=== PATIENT | male | born 1945 | race Caucasian/White ===

== ENCOUNTER 2019-12-02 21:47 | Inpatient (IN) | payer MEDICARE, OTHER ==
[~2019-12-02] VITALS: Ht 167.6 cm; Wt 88.0 kg
[2019-12-02 22:38] LABS: BASOPHILS % (AUTO) 0.8 % (0.0-2.0); EOSINOPHILS # (AUTO) 0.2 K/uL (0.0-0.7); HEMATOCRIT 43.5 % (36.7-47.1); HEMOGLOBIN 15.1 g/dL (12.5-16.3); LYMPHOCYTES # (AUTO) 1.5 K/uL (20.0-40.0); LYMPHOCYTES % (AUTO) 36.8 % (20.5-51.5); MEAN CORPUSCULAR HEMOGLOBIN 33.8 uug (23.8-33.4); MEAN CORPUSCULAR HGB CONC 35 g/dL (32.5-36.3); MEAN CORPUSCULAR VOLUME 97.6 fL (73.0-96.2); MONOCYTES # (AUTO) 0.4 K/uL (2.0-10.0); MONOCYTES % (AUTO) 10.6 % (0.0-11.0); NEUTROPHILS % (AUTO) 47.8 % (38.5-71.5); PLATELET COUNT (AUTO) 81 K/uL (152-348); RED BLOOD CELL COUNT(AUTO) 4.45 MIL/uL (4.06-5.63); WHITE BLOOD COUNT (AUTO) 4.2 K/uL (3.6-10.2)
[2019-12-02 22:45] LABS: CREATININE 0.9 mg/dL (0.6-1.3)
[2019-12-02] MEDS ORDERED: ALBUTEROL SULFATE 2.5 MG/3 ML NEBU NEB ONE (23:00)
[2019-12-02] MEDS ORDERED: IPRATROPIUM BROMIDE 0.5 MG/2.5 ML NEBU NEB ONE (23:00)
[2019-12-02] MEDS ORDERED: MAGNESIUM HYDROXIDE 30 ML LIQUID UDC PO PRN (23:45)
[2019-12-02] MEDS ORDERED: MAG HYDROX/AL HYDROX/SIMETH 30 ML LIQUID UDC PO PRN (23:45)
[2019-12-03 01:36] VITALS: BP 161/71
[2019-12-03 01:59] LABS: LYMPHOCYTES % (MANUAL) 39 % (20-40); MONOCYTES % (MANUAL) 6 % (2-10); NEUTROPHILS % (MANUAL) 55 % (42-75)
[2019-12-03 07:30] VITALS: BP 119/71
[2019-12-03] MEDS: NICOTINE 14 MG/24HR PATCH TD SCH (09:30)
[2019-12-03] MEDS ORDERED: ASPIRIN EC 81 MG TABLET.DR PO SCH (11:30)
[2019-12-03] MEDS ORDERED: FLUTICASONE/SALMETEROL 250/50 INHALER IH SCH (11:30)
[2019-12-03] MEDS ORDERED: NICOTINE 21 MG/24HR PATCH TD SCH (11:30)
[2019-12-03] MEDS: FUROSEMIDE 20 MG TABLET PO SCH (12:56)
[2019-12-03] MEDS: FAMOTIDINE 20 MG TABLET PO SCH (12:56)
[2019-12-03] MEDS: TAMSULOSIN HCL 0.4 MG CAP.SR.24H PO SCH (12:57)
[2019-12-03] MEDS: FLUTICASONE/VILANTEROL 1 EACH BLST.W.DEV INH SCH (15:34)
[2019-12-03 16:00] VITALS: BP 155/70
[2019-12-03 20:00] VITALS: BP 138/81
[2019-12-03] MEDS ORDERED: QUETIAPINE FUMARATE 25 MG TABLET PO SCH (21:00)
[2019-12-04 07:30] VITALS: BP 129/67
[2019-12-04] MEDS: FLUTICASONE/VILANTEROL 1 EACH BLST.W.DEV INH SCH (08:28)
[2019-12-04] MEDS: SERTRALINE HCL 50 MG TABLET PO SCH (08:29)
[2019-12-04] MEDS: TAMSULOSIN HCL 0.4 MG CAP.SR.24H PO SCH (08:29)
[2019-12-04] MEDS: FAMOTIDINE 20 MG TABLET PO SCH (08:29)
[2019-12-04] MEDS: FUROSEMIDE 20 MG TABLET PO SCH (08:29)
[2019-12-04] MEDS: NICOTINE 14 MG/24HR PATCH TD SCH (08:32)
[2019-12-04 16:38] VITALS: BP 125/69
[2019-12-04 20:50] VITALS: BP 125/88
[2019-12-04] MEDS ORDERED: QUETIAPINE FUMARATE 25 MG TABLET PO SCH (21:00)
[2019-12-05 07:30] VITALS: BP 135/67
[2019-12-05] MEDS: TAMSULOSIN HCL 0.4 MG CAP.SR.24H PO SCH (08:38)
[2019-12-05] MEDS: SERTRALINE HCL 50 MG TABLET PO SCH (08:38)
[2019-12-05] MEDS: FUROSEMIDE 20 MG TABLET PO SCH (08:38)
[2019-12-05] MEDS: FAMOTIDINE 20 MG TABLET PO SCH (08:38)
[2019-12-05] MEDS: NICOTINE 14 MG/24HR PATCH TD SCH (08:39)
[2019-12-05] MEDS: FLUTICASONE/VILANTEROL 1 EACH BLST.W.DEV INH SCH (09:25)
[2019-12-05 15:34] VITALS: BP 159/77
[2019-12-05 20:23] VITALS: BP 135/74
[2019-12-05] MEDS: QUETIAPINE FUMARATE 25 MG TABLET PO SCH (20:32)
[2019-12-06 07:30] VITALS: BP 139/73
[2019-12-06] MEDS: TAMSULOSIN HCL 0.4 MG CAP.SR.24H PO SCH (09:32)
[2019-12-06] MEDS: FAMOTIDINE 20 MG TABLET PO SCH (09:33)
[2019-12-06] MEDS: FUROSEMIDE 20 MG TABLET PO SCH (09:33)
[2019-12-06] MEDS: NICOTINE 14 MG/24HR PATCH TD SCH (09:33)
[2019-12-06] MEDS: SERTRALINE HCL 50 MG TABLET PO SCH (09:33)
[2019-12-06] MEDS: FLUTICASONE/VILANTEROL 1 EACH BLST.W.DEV INH SCH (09:38)
[2019-12-06 15:17] VITALS: BP 131/62
[2019-12-06] MEDS: QUETIAPINE FUMARATE 25 MG TABLET PO SCH (20:24)
[2019-12-06 20:26] VITALS: BP 126/65
[2019-12-06] MEDS: ACETAMINOPHEN 325 MG TABLET PO PRN (20:45)
[2019-12-07 07:30] VITALS: BP 115/61
[2019-12-07] MEDS: TAMSULOSIN HCL 0.4 MG CAP.SR.24H PO SCH (08:46)
[2019-12-07] MEDS: SERTRALINE HCL 50 MG TABLET PO SCH (08:46)
[2019-12-07] MEDS: FUROSEMIDE 20 MG TABLET PO SCH (08:46)
[2019-12-07] MEDS: FAMOTIDINE 20 MG TABLET PO SCH (08:46)
[2019-12-07] MEDS: NICOTINE 14 MG/24HR PATCH TD SCH (08:46)
[2019-12-07] MEDS: FLUTICASONE/VILANTEROL 1 EACH BLST.W.DEV INH SCH (08:48)
[2019-12-07 15:53] VITALS: BP 139/72
[2019-12-07] MEDS: QUETIAPINE FUMARATE 25 MG TABLET PO SCH (20:12)
[2019-12-07 21:05] VITALS: BP 119/63
[2019-12-08 07:30] VITALS: BP 137/68
[2019-12-08] MEDS: LORAZEPAM 0.5 MG TABLET PO PRN (08:33)
[2019-12-08] MEDS: NICOTINE 14 MG/24HR PATCH TD SCH (08:40)
[2019-12-08] MEDS: SERTRALINE HCL 50 MG TABLET PO SCH (08:41)
[2019-12-08] MEDS: FUROSEMIDE 20 MG TABLET PO SCH (08:41)
[2019-12-08] MEDS: FAMOTIDINE 20 MG TABLET PO SCH (08:41)
[2019-12-08] MEDS: TAMSULOSIN HCL 0.4 MG CAP.SR.24H PO SCH (08:41)
[2019-12-08] MEDS: FLUTICASONE/VILANTEROL 1 EACH BLST.W.DEV INH SCH (09:02)
[2019-12-08 16:00] VITALS: BP 118/65
[2019-12-08 20:00] VITALS: BP 126/62
[2019-12-08] MEDS ORDERED: QUETIAPINE FUMARATE 25 MG TABLET PO SCH (21:00)
[2019-12-08] MEDS: QUETIAPINE FUMARATE 100 MG TABLET PO SCH (21:57)
[2019-12-09 07:30] VITALS: BP 127/70
[2019-12-09] MEDS: SERTRALINE HCL 50 MG TABLET PO SCH (08:39)
[2019-12-09] MEDS: FUROSEMIDE 20 MG TABLET PO SCH (08:40)
[2019-12-09] MEDS: FAMOTIDINE 20 MG TABLET PO SCH (08:40)
[2019-12-09] MEDS: FLUTICASONE/VILANTEROL 1 EACH BLST.W.DEV INH SCH (08:40)
[2019-12-09] MEDS: NICOTINE 14 MG/24HR PATCH TD SCH (08:40)
[2019-12-09] MEDS: LORAZEPAM 0.5 MG TABLET PO PRN (08:40)
[2019-12-09] MEDS: TAMSULOSIN HCL 0.4 MG CAP.SR.24H PO SCH (08:40)
[2019-12-09 17:00] VITALS: BP 138/69
[2019-12-09 20:00] VITALS: BP 139/65
[2019-12-09] MEDS: QUETIAPINE FUMARATE 100 MG TABLET PO SCH (20:43)
[2019-12-10] MEDS: ACETAMINOPHEN 325 MG TABLET PO PRN (04:30)
[2019-12-10 07:30] VITALS: BP 142/73
[2019-12-10] MEDS: FAMOTIDINE 20 MG TABLET PO SCH (08:52)
[2019-12-10] MEDS: FUROSEMIDE 20 MG TABLET PO SCH (08:52)
[2019-12-10] MEDS: TAMSULOSIN HCL 0.4 MG CAP.SR.24H PO SCH (08:52)
[2019-12-10] MEDS: SERTRALINE HCL 50 MG TABLET PO SCH (08:52)
[2019-12-10] MEDS: NICOTINE 14 MG/24HR PATCH TD SCH (08:52)
[2019-12-10] MEDS: FLUTICASONE/VILANTEROL 1 EACH BLST.W.DEV INH SCH (08:55)
[2019-12-10 16:10] VITALS: BP 132/72
[2019-12-10 20:32] VITALS: BP 144/63
[2019-12-10] MEDS: QUETIAPINE FUMARATE 100 MG TABLET PO SCH (20:39)
[2019-12-11 07:30] VITALS: BP 136/64
[2019-12-11] MEDS: FUROSEMIDE 20 MG TABLET PO SCH (09:03)
[2019-12-11] MEDS: FAMOTIDINE 20 MG TABLET PO SCH (09:03)
[2019-12-11] MEDS: SERTRALINE HCL 50 MG TABLET PO SCH (09:03)
[2019-12-11] MEDS: NICOTINE 14 MG/24HR PATCH TD SCH (09:03)
[2019-12-11] MEDS: TAMSULOSIN HCL 0.4 MG CAP.SR.24H PO SCH (09:03)
[2019-12-11] MEDS: FLUTICASONE/VILANTEROL 1 EACH BLST.W.DEV INH SCH (09:14)
[2019-12-11 16:00] VITALS: BP 108/64
[2019-12-11 20:15] VITALS: BP 126/70
[2019-12-11] MEDS: QUETIAPINE FUMARATE 100 MG TABLET PO SCH (21:12)
[2019-12-12 07:30] VITALS: BP 131/77
[2019-12-12] MEDS: TAMSULOSIN HCL 0.4 MG CAP.SR.24H PO SCH (08:32)
[2019-12-12] MEDS: FUROSEMIDE 20 MG TABLET PO SCH (08:33)
[2019-12-12] MEDS: NICOTINE 14 MG/24HR PATCH TD SCH (08:33)
[2019-12-12] MEDS: SERTRALINE HCL 50 MG TABLET PO SCH (08:33)
[2019-12-12] MEDS: FAMOTIDINE 20 MG TABLET PO SCH (08:33)
[2019-12-12] MEDS: FLUTICASONE/VILANTEROL 1 EACH BLST.W.DEV INH SCH (08:33)
[2019-12-12 16:00] VITALS: BP 133/61
[2019-12-12] MEDS: QUETIAPINE FUMARATE 100 MG TABLET PO SCH (20:14)
[2019-12-12 20:34] VITALS: BP 118/61
[2019-12-13 07:30] VITALS: BP 116/61
[2019-12-13] MEDS: FAMOTIDINE 20 MG TABLET PO SCH (08:47)
[2019-12-13] MEDS: NICOTINE 14 MG/24HR PATCH TD SCH (08:47)
[2019-12-13] MEDS: TAMSULOSIN HCL 0.4 MG CAP.SR.24H PO SCH (08:47)
[2019-12-13] MEDS: FUROSEMIDE 20 MG TABLET PO SCH (08:47)
[2019-12-13] MEDS: SERTRALINE HCL 50 MG TABLET PO SCH (08:48)
[2019-12-13] MEDS: FLUTICASONE/VILANTEROL 1 EACH BLST.W.DEV INH SCH (08:49)
[2019-12-13 16:38] VITALS: BP 117/61
[2019-12-13 20:19] VITALS: BP 130/60
[2019-12-13] MEDS: QUETIAPINE FUMARATE 100 MG TABLET PO SCH (21:04)
[2019-12-14 07:30] VITALS: BP 128/62
[2019-12-14] MEDS: FUROSEMIDE 20 MG TABLET PO SCH (08:39)
[2019-12-14] MEDS: SERTRALINE HCL 50 MG TABLET PO SCH (08:39)
[2019-12-14] MEDS: FAMOTIDINE 20 MG TABLET PO SCH (08:39)
[2019-12-14] MEDS: FLUTICASONE/VILANTEROL 1 EACH BLST.W.DEV INH SCH (08:40)
[2019-12-14] MEDS: TAMSULOSIN HCL 0.4 MG CAP.SR.24H PO SCH (08:40)
[2019-12-14] MEDS: NICOTINE 14 MG/24HR PATCH TD SCH (08:40)
[2019-12-14 17:07] VITALS: BP 113/65
[2019-12-14 20:00] VITALS: BP 127/72
[2019-12-14] MEDS: QUETIAPINE FUMARATE 100 MG TABLET PO SCH (20:04)
[2019-12-15 07:30] VITALS: BP 119/70
[2019-12-15] MEDS: NICOTINE 14 MG/24HR PATCH TD SCH (08:50)
[2019-12-15] MEDS: FUROSEMIDE 20 MG TABLET PO SCH (08:50)
[2019-12-15] MEDS: TAMSULOSIN HCL 0.4 MG CAP.SR.24H PO SCH (08:50)
[2019-12-15] MEDS: SERTRALINE HCL 50 MG TABLET PO SCH (08:50)
[2019-12-15] MEDS: FLUTICASONE/VILANTEROL 1 EACH BLST.W.DEV INH SCH (08:50)
[2019-12-15] MEDS: FAMOTIDINE 20 MG TABLET PO SCH (08:50)
[2019-12-15 15:15] VITALS: BP 117/59
[2019-12-15] MEDS: QUETIAPINE FUMARATE 100 MG TABLET PO SCH (20:36)
[2019-12-15 20:58] VITALS: BP 116/74
[2019-12-16] MEDS: TEMAZEPAM 7.5 MG CAPSULE PO PRN ×2 (01:00→23:44)
[2019-12-16 07:30] VITALS: BP 133/79
[2019-12-16] MEDS: FAMOTIDINE 20 MG TABLET PO SCH (09:17)
[2019-12-16] MEDS: NICOTINE 14 MG/24HR PATCH TD SCH (09:17)
[2019-12-16] MEDS: TAMSULOSIN HCL 0.4 MG CAP.SR.24H PO SCH (09:17)
[2019-12-16] MEDS: SERTRALINE HCL 50 MG TABLET PO SCH (09:17)
[2019-12-16] MEDS: FUROSEMIDE 20 MG TABLET PO SCH (09:18)
[2019-12-16] MEDS: FLUTICASONE/VILANTEROL 1 EACH BLST.W.DEV INH SCH (09:19)
[2019-12-16 16:03] VITALS: BP 122/62
[2019-12-16] MEDS: QUETIAPINE FUMARATE 100 MG TABLET PO SCH (20:05)
[2019-12-16 20:24] VITALS: BP 125/73
[2019-12-17 07:30] VITALS: BP 115/84
[2019-12-17] MEDS: FLUTICASONE/VILANTEROL 1 EACH BLST.W.DEV INH SCH (08:06)
[2019-12-17] MEDS: FAMOTIDINE 20 MG TABLET PO SCH (08:07)
[2019-12-17] MEDS: FUROSEMIDE 20 MG TABLET PO SCH (08:07)
[2019-12-17] MEDS: TAMSULOSIN HCL 0.4 MG CAP.SR.24H PO SCH (08:07)
[2019-12-17] MEDS: SERTRALINE HCL 50 MG TABLET PO SCH (08:07)
[2019-12-17] MEDS: NICOTINE 14 MG/24HR PATCH TD SCH (08:07)
[2019-12-17 16:00] VITALS: BP 142/64
[2019-12-17] MEDS: QUETIAPINE FUMARATE 100 MG TABLET PO SCH ×2 (21:00→23:10)
[2019-12-17 21:05] VITALS: BP 134/68
[2019-12-17] MEDS: ACETAMINOPHEN 325 MG TABLET PO PRN (23:10)
[2019-12-18 07:30] VITALS: BP 148/73
[2019-12-18] MEDS: TAMSULOSIN HCL 0.4 MG CAP.SR.24H PO SCH (09:37)
[2019-12-18] MEDS: FAMOTIDINE 20 MG TABLET PO SCH (09:37)
[2019-12-18] MEDS: FUROSEMIDE 20 MG TABLET PO SCH (09:37)
[2019-12-18] MEDS: NICOTINE 14 MG/24HR PATCH TD SCH (09:37)
[2019-12-18] MEDS: SERTRALINE HCL 50 MG TABLET PO SCH (09:37)
[2019-12-18] MEDS: FLUTICASONE/VILANTEROL 1 EACH BLST.W.DEV INH SCH (09:38)
== END 2019-12-18 13:45 | DRG 885 ==
LOC: ER 21:55 → GPS 23:38
PROVIDERS: ADMIT Psychiatry & Neurology Psychosomatic Medicine; ATTEND Nurse Practitioner Acute Care
DX: F25.0 Schizoaffective disorder, bipolar type (principal); B02.30 Zoster ocular disease, unspecified; J44.9 Chronic obstructive pulmonary disease, unspecified; F17.210 Nicotine dependence, cigarettes, uncomplicated; E78.5 Hyperlipidemia, unspecified; K21.9 Gastro-esophageal reflux disease without esophagitis; N40.0 Benign prostatic hyperplasia without lower urinary tract symptoms; Z86.61 Personal history of infections of the central nervous system; Z79.82 Long term (current) use of aspirin; Z79.899 Other long term (current) drug therapy; E11.9 Type 2 diabetes mellitus without complications; I10 Essential (primary) hypertension
CPT/HCPCS: 36415; 70030-TC; 70450; 85025; 93005; A4663; J3590; J7060